=== PATIENT | female | born 1960 | race Two or more races ===

== ENCOUNTER 2021-10-02 08:48 | Day surgery (SDC) | payer OTHER ==
[~2021-10-02 08:48] MED LIST: ALLERGY RELIE15.8 ML NASAL; ATACAND4 MG PO; D3 + K2 DOTS 11 EACH PO; LEVO-T50 MCG PO; LIPITOR20 MG PO; PROZAC20 MG PO
== END 2021-10-02 19:00 | disposition home or self-care (01) ==
LOC: CIR.AMB 08:48
PROVIDERS: ATTEND Colon & Rectal Surgery
DX: K60.0 Acute anal fissure (principal); K62.4 Stenosis of anus and rectum; K92.2 Gastrointestinal hemorrhage, unspecified